=== PATIENT | male | born 1950 | race Two or more races ===

== ENCOUNTER 2019-03-30 08:32 | Emergency (ER) | payer OTHER ==
[~2019-03-30] VITALS: Ht 167.6 cm; Wt 81.0 kg
[2019-03-30] MEDS ORDERED: METF500T17 PO (09:11)
[2019-03-30] MEDS ORDERED: LISI-167 PO (09:11)
--- NOTE | 2019-03-30 09:12 | NUR ---
PT TO ED FOR LEFT SIDED UPPER AND LOWER ABD PAIN RAD TO LEFT FLANK SINCE THIS MORNING. CONNECTED TO MONITORS. HTN 185/81 (HAS NOT TAKEN HTN MEDICATION X2 DAYS), ALL OTHER VSS ON RA. EDPA TO BS TO ASSESS. AWAITING ORDERS.
[2019-03-30] MEDS ORDERED: ONDANSETRON 2MG/ML, 2ML IVPush ONE (09:30)
[2019-03-30] MEDS ORDERED: SODIUM CHLORIDE FLUSH 10ML SYR IVF ONE (09:30)
[2019-03-30] MEDS ORDERED: KETOROLAC 30 MG/1 ML IVPush ONE (09:30)
[2019-03-30] MEDS ORDERED: MORPHINE SULFATE 4 MG/ML, 1ML IVPush PRN (09:30)
[2019-03-30] MEDS ORDERED: KETOROLAC 30 MG/1 ML ONE (09:52)
[2019-03-30] MEDS ORDERED: ONDANSETRON 2MG/ML, 2ML ONE (09:52)
[2019-03-30 09:53] LABS: BASOPHILS # (AUTO) 0.05 x10^3/uL (0-0.1); BASOPHILS % (AUTO) 1 % (0-1); EOSINOPHILS # (AUTO) 0.19 x10^3/uL (0-0.4); EOSINOPHILS % (AUTO) 2 % (1-7); LYMPHOCYTES # (AUTO) 1.98 x10^3/uL (1-3.4); LYMPHOCYTES % (AUTO) 23 % (22-44); MD NO; MEAN CORPUSCULAR HGB CONC 33.8 g/dL (33.2-36.2); MEAN CORPUSCULAR VOLUME 97.7 fL (81-97); MEAN PLATELET VOLUME 8.4 fL (7.4-10.4); MONOCYTES # (AUTO) 0.48 x10^3/uL (0.2-0.8); MONOCYTES % (AUTO) 6 % (2-9); NEUTROPHILS # (AUTO) 5.92 x10^3/uL (1.8-6.8); NEUTROPHILS % (AUTO) 69 % (42-75); PLATELET COUNT 263 x10^3/uL (130-400); RED BLOOD COUNT 4.58 x10^6/uL (4.38-5.82); RED CELL DISTRIBUTION WIDTH 13.8 % (9.4-14.8)
--- NOTE | 2019-03-30 09:56 | NUR ---
PT RESTING IN ROOM WITH FAMILY AT BEDSIDE. VSS. PT MEDICATED PER JAN. IV ESTABLISHED AT LABS DRAWN. UA COLLECTED AND DRAWN. AWAITING CT.
[2019-03-30 10:02] LABS: ALANINE AMINOTRANSFERASE 37 U/L (12-78); ALBUMIN 4.1 g/dL (3.4-5.0); ANION GAP 7 mmol/L (5-15); CALCIUM 9.2 mg/dL (8.5-10.1); CHLORIDE 106 mmol/L (98-107)
[2019-03-30 10:04] LABS: ALKALINE PHOSPHATASE 58 U/L (45-117); BILIRUBIN,TOTAL 0.3 mg/dL (0.2-1.0); CREATININE 1.26 mg/dL (0.7-1.3); TOTAL PROTEIN 8.4 g/dL (6.4-8.2)
[2019-03-30 10:13] LABS: MICROSCOPIC AUTO
[2019-03-30 10:15] LABS: CULTURE INDICATED? NO
--- NOTE | 2019-03-30 10:15 | NUR ---
PT STATES PAIN IS RELIEVED WITH MEDICATION. PT TO CT AT THIS TIME.
[2019-03-30 11:26] VITALS: BP 134/83
== END 2019-03-30 11:30 | disposition home or self-care (01) ==
LOC: ED 09:01
DX: N13.2 Hydronephrosis with renal and ureteral calculous obstruction (principal); I10 Essential (primary) hypertension
CPT/HCPCS: 36415; 74176; 80053; 81001; 85025; 93005; 96374; 96375; 99284; J1885; J2405